=== PATIENT | female | born 1975 | race Hispanic/Latino ===

== ENCOUNTER 2016-10-24 17:04 | Emergency (ER) | payer SELFPAY ==
[2016-10-24] MEDS ORDERED: PROVENTIL IH ONE ×2 (17:19→17:24)
[2016-10-24] MEDS ORDERED: MAGNESIUM SULFATE 2GM/50ML 2 GM/50 ML BAG IV ONE (17:22)
[2016-10-24] MEDS ORDERED: ADRENALIN ONE (17:24)
[2016-10-24] MEDS ORDERED: NACL 0.9% 1000 ML 1,000 ML ONE (17:26)
[2016-10-24] MEDS ORDERED: ATROVENT IH ONE (17:29)
--- NOTE | 2016-10-24 18:24 | XRay Report ---
FINAL REPORT EXAM: XR CHEST 1V AP HISTORY: Shortness of breath TECHNIQUE: AP portable view of the chest PRIORS: None. FINDINGS: Lines, tubes, and devices: N/A Lungs and pleura: Trachea is normal in position. Lungs are clear of infiltrate, pleural effusion, vascular congestion, or pneumothorax. Cardiomediastinal silhouette: Cardiac and mediastinal silhouettes are unremarkable. Other: Bony structures are intact. IMPRESSION: No acute cardiopulmonary process seen.
[2016-10-24 18:36] LABS: Hematocrit 39.2 % (30.3-42.9); Hemoglobin 12.8 gm/dl (10.1-14.3); Mean Corpuscular HGB Conc 33 % (30-34); Mean Corpuscular Hemoglobin 28 pg (28-32); Mean Corpuscular Volume 87 fl (79-97); Platelet Count 604 K/mm3 (140-440); Red Blood Count 4.51 M/mm3 (3.65-5.03); Red Cell Distribution Width 14.2 % (13.2-15.2)
[2016-10-24 18:47] LABS: White Blood Count 23.5 K/mm3 (4.5-11.0)
[2016-10-24 18:48] LABS: Anion Gap 23 mmol/L; Blood Urea Nitrogen 14 mg/dL (7-17); Calcium 8.7 mg/dL (8.4-10.2); Carbon Dioxide 24 mmol/L (22-30); Chloride 97.2 mmol/L (98-107); Glucose 190 mg/dL (65-100); Sodium 139 mmol/L (137-145)
[2016-10-24 19:21] LABS: Basophils % (Manual) 0 % (0.0-1.8); Blastocytes % (Manual) 0 %; Platelet Estimate Appears Increased
[2016-10-24 19:22] LABS: Poikilocytosis Few
[2016-10-24 19:23] LABS: Diff Status Complete
[2016-10-24] MEDS ORDERED: MAGNESIUM SULFATE IV ONE (19:35)
[2016-10-24] MEDS ORDERED: ADRENALINE P/F SUB-Q ONE (19:36)
[2016-10-24] MEDS ORDERED: NACL 0.9% 1000 ML 1,000 ML IV ONE (19:36)
--- NOTE | 2016-10-24 21:12 | Emergency Department Report ---
HPI - General Chief Complaint: Adult Asthma Time Seen by Provider: 10/24/16 17:46 - HPI HPI: Chief complaint:" I can't breathe" This is a 41-year-old white female with history of asthma persistent moderate. Was brought to ED by mother, for severe shortness of breath. Patient was diaphoretic, and wheezing. Mother stated that patient has run out of her inhalers. Patient is in distress and has not been able to cooperate with this examination and history. ED Past Medical Hx - Past Medical History Hx Asthma: Yes Additional medical history: fibromyalgia - Surgical History Past Surgical History?: No - Family History Family history: hypertension - Social History Smoking Status: Never Smoker Substance Use Type: None - Medications Home Medications: Home Medications Medication Instructions Recorded Confirmed Last Taken Type ALBUTEROL Inhaler [ProAir HFA 2 puff IH QID PRN #1 inhalation 10/24/16 Unknown Rx Inhaler] methylPREDNISolone [Medrol] 4 mg PO DAILY #1 tab.ds.pk 10/24/16 Unknown Rx ED Review of Systems ROS: Stated complaint: ASTHMA ATTACK Other details as noted in HPI Comment: Unobtainable due to pts medical conditions Physical Exam - Physical Exam Vital Signs: Vital Signs 10/24/16 10/24/16 10/24/16 17:12 17:19 17:52 Temperature 97.1 F L Pulse Rate 120 H 97 H Pulse Rate [ Anterior Bilateral Throughout] Pulse Rate [ 117 H Posterior Bilateral Throughout] Respiratory 32 H 18 Rate Respiratory Rate [Anterior Bilateral Throughout] Respiratory 60 H Rate [Posterior Bilateral Throughout] Blood Pressure 168/124 Blood Pressure 168/124 [Left] O2 Sat by Pulse 96 97 Oximetry 10/24/16 10/24/16 10/24/16 17:54 18:31 18:56 Temperature 98 F Pulse Rate 98 H Pulse Rate [ 121 H Anterior Bilateral Throughout] Pulse Rate [ Posterior Bilateral Throughout] Respiratory 24 18 Rate Respiratory 20 Rate [Anterior Bilateral Throughout] Respiratory Rate [Posterior Bilateral Throughout] Blood Pressure Blood Pressure 118/72 [Left] O2 Sat by Pulse 100 Oximetry 10/24/16 10/24/16 10/24/16 18:57 19:47 19:48 Temperature 97 F L Pulse Rate 111 H Pulse Rate [ Anterior Bilateral Throughout] Pulse Rate [ Posterior Bilateral Throughout] Respiratory 22 20 20 Rate Respiratory Rate [Anterior Bilateral Throughout] Respiratory Rate [Posterior Bilateral Throughout] Blood Pressure Blood Pressure 112/69 [Left] O2 Sat by Pulse 98 Oximetry Physical Exam: Gen. Severe distress Head atraumatic normocephalic Eyes PERR LA EOMI Chest regular rate and rhythm normal S1-S2 lungs wheezing in all lobes Abdomen soft nondistended Back no point tenderness paravertebral tenderness Neuro no focal deficit. Psych normal mood. ED Course Vital Signs 10/24/16 10/24/16 10/24/16 17:12 17:19 17:52 Temperature 97.1 F L Pulse Rate 120 H 97 H Pulse Rate [ Anterior Bilateral Throughout] Pulse Rate [ 117 H Posterior Bilateral Throughout] Respiratory 32 H 18 Rate Respiratory Rate [Anterior Bilateral Throughout] Respiratory 60 H Rate [Posterior Bilateral Throughout] Blood Pressure 168/124 Blood Pressure 168/124 [Left] O2 Sat by Pulse 96 97 Oximetry 10/24/16 10/24/16 10/24/16 17:54 18:31 18:56 Temperature 98 F Pulse Rate 98 H Pulse Rate [ 121 H Anterior Bilateral Throughout] Pulse Rate [ Posterior Bilateral Throughout] Respiratory 24 18 Rate Respiratory 20 Rate [Anterior Bilateral Throughout] Respiratory Rate [Posterior Bilateral Throughout] Blood Pressure Blood Pressure 118/72 [Left] O2 Sat by Pulse 100 Oximetry 10/24/16 10/24/16 10/24/16 18:57 19:47 19:48 Temperature 97 F L Pulse Rate 111 H Pulse Rate [ Anterior Bilateral Throughout] Pulse Rate [ Posterior Bilateral Throughout] Respiratory 22 20 20 Rate Respiratory Rate [Anterior Bilateral Throughout] Respiratory Rate [Posterior Bilateral Throughout] Blood Pressure Blood Pressure 112/69 [Left] O2 Sat by Pulse 98 Oximetry - Reevaluation(s) Reevaluation #1: 10/24/16 21:09 Admission was offered, but patient states she feels better and wants to go home. Refuses admission. ED Medical Decision Making - Lab Data Result diagrams: 10/24/16 18:05 10/24/16 18:05 Critical care attestation.: If time is entered above; I have spent that time in minutes in the direct care of this critically ill patient, excluding procedure time. ED Disposition Clinical Impression: Asthma exacerbation Disposition: DC-01 TO HOME OR SELFCARE Is pt being admited?: No Does the pt Need Aspirin: No Condition: Stable Prescriptions: ALBUTEROL Inhaler [ProAir HFA Inhaler] 2 puff IH QID PRN #1 inhalation PRN Reason: Shortness Of Breath methylPREDNISolone [Medrol] 4 mg PO DAILY #1 tab.ds.pk Referrals: PRIMARY CARE, [Primary Care Provider] - 3-5 Days
[2016-10-24 21:23] VITALS: BP 122/68
== END 2016-10-24 21:26 | disposition home or self-care (01) ==
LOC: ED 17:04
DX: J45.901 Unspecified asthma with (acute) exacerbation (principal); M79.7 Fibromyalgia
CPT/HCPCS: 36415; 71010; 80048; 82962; 84484; 85007; 85025; 93005; 93010; 94644; 96361; 96372; 96374; 96375; 99284; J0171; J2930; J3475; J7030

== ENCOUNTER 2018-07-19 08:34 | Emergency (ER) | payer BC ==
[2018-07-19 09:36] LABS: Basophils % (Auto) 0.3 % (0.0-1.8); Eosinophils % (Auto) 0.5 % (0.0-4.3); Hematocrit 29.6 % (30.3-42.9); Hemoglobin 10.1 gm/dl (10.1-14.3); Lymphocytes # (Auto) 1.7 K/mm3 (1.2-5.4); Lymphocytes % (Auto) 49.2 % (13.4-35.0); Mean Corpuscular HGB Conc 34 % (30-34); Mean Corpuscular Volume 122 fl (79-97); Monocytes # (Auto) 0.3 K/mm3 (0.0-0.8); Platelet Count 225 K/mm3 (140-440); Red Blood Count 2.43 M/mm3 (3.65-5.03); Red Cell Distribution Width 13.5 % (13.2-15.2)
--- NOTE | 2018-07-19 09:49 | Emergency Department Report ---
ED General Adult HPI - General Chief complaint: Weakness Stated complaint: FALL/VOMITTING/GRAVES DISEASE Time Seen by Provider: 07/19/18 09:23 Source: patient Mode of arrival: Ambulatory Limitations: No Limitations - History of Present Illness Initial comments: Patient presents to emergency department with a chief complaint of generalized weakness especially worse in the lower extremity to started 2 days ago. Patient also complains of some nausea and vomiting that started this morning. Initially the patient stated she fell but then the foreskin that she did not fall. Patient has a history of Graves' disease and takes levothyroxine. Patient den ies chest pain, shortness breath, abdominal pain, facial droop, aphasia, focal weakness -: Gradual Radiation: non-radiation Severity scale (0 -10): 0 Improves with: none Worsens with: none Associated Symptoms: denies other symptoms Treatments Prior to Arrival: none - Related Data Home Medications Medication Instructions Recorded Confirmed Last Taken Albuterol Sulfate 1.25 mg IH Q6H PRN 02/22/17 02/22/17 02/21/17 Aspirin [Aspirin BABY CHEW TAB] 81 mg PO QDAY 02/22/17 02/22/17 02/21/17 Cyclobenzaprine [Flexeril 10 MG 10 mg PO DAILY 02/22/17 02/22/17 02/21/17 TAB] Duloxetine HCl [Cymbalta] 60 mg PO BID 02/22/17 02/22/17 02/21/17 Lisinopril/Hydrochlorothiazide 1 each PO DAILY 02/22/17 02/22/17 02/21/17 [Zestoretic 10-12.5 mg Tablet] Naproxen Sodium [Aleve] 220 mg PO BID 02/22/17 02/22/17 02/21/17 methIMAzole [Tapazole] 2.5 mg PO QDAY 02/22/17 02/22/17 02/21/17 Previous Rx's Medication Instructions Recorded Last Taken Type ALBUTEROL Inhaler (OR & NICU) 2 puff IH QID PRN #1 inhalation 10/24/16 02/22/17 Rx [ProAir HFA Inhaler] Budesoni/Formotero 160-4.5(Nf) 2 puff IH BID 30 Days inha 02/27/17 Unknown Rx [Symbicort 160-4.5 (Nf)] Famotidine [Pepcid] 20 mg PO BID #30 tablet 02/27/17 Unknown Rx levoFLOXacin [Levaquin] 750 mg PO QDAY #2 tablet 02/27/17 Unknown Rx Ibuprofen [Motrin] 800 mg PO Q8HR PRN #30 tablet 04/02/18 Unknown Rx traMADol [Ultram 50 MG tab] 50 mg PO Q6HR PRN #20 tablet 04/02/18 Unknown Rx Ondansetron [Zofran Odt] 4 mg PO Q4HR PRN #20 tab.rapdis 07/19/18 Unknown Rx Allergies Allergy/AdvReac Type Severity Reaction Status Date / Time No Known Allergies Allergy Unverified 10/24/16 17:14 ED Review of Systems ROS: Stated complaint: FALL/VOMITTING/GRAVES DISEASE Other details as noted in HPI Constitutional: weakness. denies: chills, fever Eyes: denies: eye pain, eye discharge, vision change ENT: denies: ear pain, throat pain Respiratory: denies: cough, shortness of breath, wheezing Cardiovascular: denies: chest pain, palpitations Endocrine: no symptoms reported Gastrointestinal: nausea, vomiting. denies: abdominal pain, diarrhea Genitourinary: denies: urgency, dysuria, discharge Musculoskeletal: denies: back pain, joint swelling, arthralgia Skin: denies: rash, lesions Neurological: denies: headache, weakness, paresthesias Psychiatric: denies: anxiety, depression Hematological/Lymphatic: denies: easy bleeding, easy bruising ED Past Medical Hx - Past Medical History Previous Medical History?: Yes Hx Congestive Heart Failure: No Hx Diabetes: No Hx Asthma: Yes Hx COPD: No Hx HIV: No Additional medical history: fibromyalgia,graves DZ, essential thrombocythemia, - Surgical History Past Surgical History?: Yes Additional Surgical History: Hysterectomy - Social History Smoking Status: Never Smoker Substance Use Type: None - Medications Home Medications: Home Medications Medication Instructions Recorded Confirmed Last Taken Type ALBUTEROL Inhaler (OR & NICU) 2 puff IH QID PRN #1 inhalation 10/24/16 02/22/17 02/22/17 Rx [ProAir HFA Inhaler] Albuterol Sulfate 1.25 mg IH Q6H PRN 02/22/17 02/22/17 02/21/17 History Aspirin [Aspirin BABY CHEW TAB] 81 mg PO QDAY 02/22/17 02/22/17 02/21/17 History Cyclobenzaprine [Flexeril 10 MG 10 mg PO DAILY 02/22/17 02/22/17 02/21/17 History TAB] Duloxetine HCl [Cymbalta] 60 mg PO BID 02/22/17 02/22/17 02/21/17 History Lisinopril/Hydrochlorothiazide 1 each PO DAILY 02/22/17 02/22/17 02/21/17 History [Zestoretic 10-12.5 mg Tablet] Naproxen Sodium [Aleve] 220 mg PO BID 02/22/17 02/22/17 02/21/17 History methIMAzole [Tapazole] 2.5 mg PO QDAY 02/22/17 02/22/17 02/21/17 History Budesoni/Formotero 160-4.5(Nf) 2 puff IH BID 30 Days inha 02/27/17 Unknown Rx [Symbicort 160-4.5 (Nf)] Famotidine [Pepcid] 20 mg PO BID #30 tablet 02/27/17 Unknown Rx levoFLOXacin [Levaquin] 750 mg PO QDAY #2 tablet 02/27/17 Unknown Rx Ibuprofen [Motrin] 800 mg PO Q8HR PRN #30 tablet 04/02/18 Unknown Rx traMADol [Ultram 50 MG tab] 50 mg PO Q6HR PRN #20 tablet 04/02/18 Unknown Rx Ondansetron [Zofran Odt] 4 mg PO Q4HR PRN #20 tab.rapdis 07/19/18 Unknown Rx ED Physical Exam - General Limitations: No Limitations General appearance: alert, in no apparent distress - Head Head exam: Present: atraumatic, normocephalic - Eye Eye exam: Present: normal appearance, PERRL, EOMI - ENT ENT exam: Present: mucous membranes moist - Neck Neck exam: Present: normal inspection - Respiratory Respiratory exam: Present: normal lung sounds bilaterally. Absent: respiratory distress, wheezes, rales - Cardiovascular Cardiovascular Exam: Present: regular rate, normal rhythm. Absent: systolic murmur, diastolic murmur, rubs, gallop - GI/Abdominal GI/Abdominal exam: Present: soft, normal bowel sounds. Absent: distended, tenderness - Extremities Exam Extremities exam: Present: normal inspection - Back Exam Back exam: Present: normal inspection - Neurological Exam Neurological exam: Present: alert, oriented X3, CN II-XII intact, normal gait, other (patient has good sensation to pinprick throughout dermatomes of lower extremities; with good muscle strength). Absent: motor sensory deficit - Psychiatric Psychiatric exam: Present: normal affect, normal mood - Skin Skin exam: Present: warm, dry, intact, normal color. Absent: rash ED Course Vital Signs 07/19/18 07/19/18 07/19/18 08:38 08:43 08:45 Temperature 98.1 F Pulse Rate 89 88 91 H Respiratory 13 20 20 Rate Blood Pressure 124/72 124/72 O2 Sat by Pulse 99 99 Oximetry 07/19/18 07/19/18 09:00 09:08 Temperature 98.1 F Pulse Rate 88 Respiratory 17 18 Rate Blood Pressure 121/77 O2 Sat by Pulse 99 Oximetry ED Medical Decision Making - Lab Data Result diagrams: 07/19/18 09:27 07/19/18 09:27 Lab Results 07/19/18 07/19/18 07/19/18 Range/Units 09:27 09:27 09:27 WBC 3.5 L (4.5-11.0) K/mm3 RBC 2.43 L (3.65-5.03) M/mm3 Hgb 10.1 (10.1-14.3) gm/dl Hct 29.6 L (30.3-42.9) % MCV 122 H (79-97) fl MCH 41 H (28-32) pg MCHC 34 (30-34) % RDW 13.5 (13.2-15.2) % Plt Count 225 (140-440) K/mm3 Lymph % (Auto) 49.2 H (13.4-35.0) % Bladen % (Auto) 9.0 H (0.0-7.3) % Eos % (Auto) 0.5 (0.0-4.3) % Baso % (Auto) 0.3 (0.0-1.8) % Lymph # 1.7 (1.2-5.4) K/mm3 Bladen # 0.3 (0.0-0.8) K/mm3 Eos # 0.0 (0.0-0.4) K/mm3 Baso # 0.0 (0.0-0.1) K/mm3 Seg Neutrophils % 41.0 (40.0-70.0) % Seg Neutrophils # 1.5 L (1.8-7.7) K/mm3 Sodium 138 (137-145) mmol/L Potassium 3.5 L (3.6-5.0) mmol/L Chloride 100.7 (98-107) mmol/L Carbon Dioxide 27 (22-30) mmol/L Anion Gap 14 mmol/L BUN 15 (7-17) mg/dL Creatinine 0.7 (0.7-1.2) mg/dL Estimated GFR > 60 ml/min BUN/Creatinine Ratio 21 % Glucose 95 (65-100) mg/dL Calcium 8.5 (8.4-10.2) mg/dL Magnesium 1.80 (1.7-2.3) mg/dL Total Bilirubin 0.20 (0.1-1.2) mg/dL AST 15 (5-40) units/L ALT 17 (7-56) units/L Alkaline Phosphatase 53 (35-129) units/L Troponin T < 0.010 (0.00-0.029) ng/mL Total Protein 7.7 (6.3-8.2) g/dL Albumin 3.8 L (3.9-5) g/dL Albumin/Globulin Ratio 1.0 % TSH (0.270-4.200) mlU/mL Thyroxine (T4) 6.2 (4.0-12.0) ug/dL 07/19/18 07/19/18 Range/Units 09:27 11:24 WBC (4.5-11.0) K/mm3 RBC (3.65-5.03) M/mm3 Hgb (10.1-14.3) gm/dl Hct (30.3-42.9) % MCV (79-97) fl MCH (28-32) pg MCHC (30-34) % RDW (13.2-15.2) % Plt Count (140-440) K/mm3 Lymph % (Auto) (13.4-35.0) % Bladen % (Auto) (0.0-7.3) % Eos % (Auto) (0.0-4.3) % Baso % (Auto) (0.0-1.8) % Lymph # (1.2-5.4) K/mm3 Bladen # (0.0-0.8) K/mm3 Eos # (0.0-0.4) K/mm3 Baso # (0.0-0.1) K/mm3 Seg Neutrophils % (40.0-70.0) % Seg Neutrophils # (1.8-7.7) K/mm3 Sodium (137-145) mmol/L Potassium (3.6-5.0) mmol/L Chloride (98-107) mmol/L Carbon Dioxide (22-30) mmol/L Anion Gap mmol/L BUN (7-17) mg/dL Creatinine (0.7-1.2) mg/dL Estimated GFR ml/min BUN/Creatinine Ratio % Glucose (65-100) mg/dL Calcium (8.4-10.2) mg/dL Magnesium (1.7-2.3) mg/dL Total Bilirubin (0.1-1.2) mg/dL AST (5-40) units/L ALT (7-56) units/L Alkaline Phosphatase (35-129) units/L Troponin T < 0.010 (0.00-0.029) ng/mL Total Protein (6.3-8.2) g/dL Albumin (3.9-5) g/dL Albumin/Globulin Ratio % TSH 3.040 (0.270-4.200) mlU/mL Thyroxine (T4) (4.0-12.0) ug/dL - EKG Data -: EKG Interpreted by Dc EKG shows normal: sinus rhythm Rate: normal - Radiology Data Radiology results: report reviewed - Medical Decision Making Patient states she feels greatly improved and is ready to go home Urinalysis was ordered but patient politely declined providing us with a sample Critical care attestation.: If time is entered above; I have spent that time in minutes in the direct care of this critically ill patient, excluding procedure time. ED Disposition Clinical Impression: Weakness, Nausea & vomiting Disposition: DC-01 TO HOME OR SELFCARE Is pt being admited?: No Does the pt Need Aspirin: No Condition: Stable Instructions: Weakness (ED) Additional Instructions: return if worse Referrals: ASHOK [facility] MD HUM[facility]ERTO [Primary Care Provider] - 3-5 Days [facility] [Outside] - 3-5 Days [facility] [Provider Group] - 3-5 Days [facility] [Provider Group] - 3-5 Days Time of Disposition: 13:01
[2018-07-19 09:53] LABS: Alanine Aminotransferase 17 units/L (7-56); Albumin 3.8 g/dL (3.9-5); BUN/Creatinine Ratio 21; Blood Urea Nitrogen 15 mg/dL (7-17); Calcium 8.5 mg/dL (8.4-10.2); Hemolysis Index 6
--- NOTE | 2018-07-19 10:17 | XRay Report ---
AP CHEST: HISTORY: Cough AP view of the chest demonstrates a normal mediastinal and cardiac contour with clear lungs and normal bony and soft tissue structures. IMPRESSION: Unremarkable AP chest.
[2018-07-19 13:34] VITALS: BP 112/72
== END 2018-07-19 13:36 | disposition home or self-care (01) ==
LOC: ED 08:34
DX: R53.1 Weakness (principal); R11.2 Nausea with vomiting, unspecified; J45.909 Unspecified asthma, uncomplicated
CPT/HCPCS: 36415; 71045; 80053; 83735; 84436; 84443; 84484; 85025; 93005; 93010

== ENCOUNTER 2020-06-14 19:19 | Emergency (ER) | payer BC, OTHER ==
[2020-06-14 19:27] VITALS: BP 149/92
--- NOTE | 2020-06-14 19:31 | Emergency Department Report ---
ED Lower Extremity HPI - General Stated Complaint: RT FOOT PAIN/SWELLING Time Seen by Provider: 06/14/20 19:23 Source: patient Mode of arrival: Ambulatory Limitations: No Limitations - History of Present Illness MD Complaint: foot injury -: Sudden, week(s) (2) Injury: Foot: Right Type of Injury: other (patient states she jumped out of tall truck and landed on her toes) Severity: moderate Severity scale (0 -10): 8 Improves With: nothing Worsens With: weight bearing, movement, palpation Context: jumping Associated Symptoms: swelling - Related Data Home Medications Medication Instructions Recorded Confirmed Last Taken Albuterol Sulfate 1.25 mg IH Q6H PRN 02/22/17 02/22/17 02/21/17 Aspirin [Aspirin BABY CHEW TAB] 81 mg PO QDAY 02/22/17 02/22/17 02/21/17 Cyclobenzaprine [Flexeril 10 MG 10 mg PO DAILY 02/22/17 02/22/17 02/21/17 TAB] Duloxetine HCl [Cymbalta] 60 mg PO BID 02/22/17 02/22/17 02/21/17 Lisinopril/Hydrochlorothiazide 1 each PO DAILY 02/22/17 02/22/17 02/21/17 [Zestoretic 10-12.5 mg Tablet] Naproxen Sodium [Aleve] 220 mg PO BID 02/22/17 02/22/17 02/21/17 methIMAzole [Tapazole] 2.5 mg PO QDAY 02/22/17 02/22/17 02/21/17 Previous Rx's Medication Instructions Recorded Last Taken Type Albuterol Mdi (or & Nicu Only) 2 puff IH QID PRN #1 inhalation 10/24/16 02/22/17 Rx [ProAir HFA Inhaler] Budesoni/Formotero 160-4.5(Nf) 2 puff IH BID 30 Days inha 02/27/17 Unknown Rx [Symbicort 160-4.5 (Nf)] Famotidine [Pepcid] 20 mg PO BID #30 tablet 02/27/17 Unknown Rx levoFLOXacin [Levaquin] 750 mg PO QDAY #2 tablet 02/27/17 Unknown Rx traMADoL [Ultram 50 MG tab] 50 mg PO Q6HR PRN #20 tablet 04/02/18 Unknown Rx Ondansetron [Zofran Odt] 4 mg PO Q4HR PRN #20 tab.rapdis 07/19/18 Unknown Rx Ibuprofen [Motrin 800 MG tab] 800 mg PO Q8HR PRN #30 tablet 06/14/20 Unknown Rx Allergies Allergy/AdvReac Type Severity Reaction Status Date / Time No Known Allergies Allergy Unverified 10/24/16 17:14 ED Review of Systems ROS: Stated complaint: RT FOOT PAIN/SWELLING Other details as noted in HPI Comment: All other systems reviewed and negative Musculoskeletal: joint swelling, arthralgia ED Past Medical Hx - Past Medical History Hx Congestive Heart Failure: No Hx Diabetes: No Hx Asthma: Yes Hx COPD: No Hx HIV: No Additional medical history: fibromyalgia,graves DZ, essential thrombocythemia, - Surgical History Additional Surgical History: Hysterectomy - Social History Smoking Status: Never Smoker Substance Use Type: None - Medications Home Medications: Home Medications Medication Instructions Recorded Confirmed Last Taken Type Albuterol Mdi (or & Nicu Only) 2 puff IH QID PRN #1 inhalation 10/24/16 02/22/17 02/22/17 Rx [ProAir HFA Inhaler] Albuterol Sulfate 1.25 mg IH Q6H PRN 02/22/17 02/22/17 02/21/17 History Aspirin [Aspirin BABY CHEW TAB] 81 mg PO QDAY 02/22/17 02/22/17 02/21/17 History Cyclobenzaprine [Flexeril 10 MG 10 mg PO DAILY 02/22/17 02/22/17 02/21/17 History TAB] Duloxetine HCl [Cymbalta] 60 mg PO BID 02/22/17 02/22/17 02/21/17 History Lisinopril/Hydrochlorothiazide 1 each PO DAILY 02/22/17 02/22/17 02/21/17 History [Zestoretic 10-12.5 mg Tablet] Naproxen Sodium [Aleve] 220 mg PO BID 02/22/17 02/22/17 02/21/17 History methIMAzole [Tapazole] 2.5 mg PO QDAY 02/22/17 02/22/17 02/21/17 History Budesoni/Formotero 160-4.5(Nf) 2 puff IH BID 30 Days inha 02/27/17 Unknown Rx [Symbicort 160-4.5 (Nf)] Famotidine [Pepcid] 20 mg PO BID #30 tablet 02/27/17 Unknown Rx levoFLOXacin [Levaquin] 750 mg PO QDAY #2 tablet 02/27/17 Unknown Rx traMADoL [Ultram 50 MG tab] 50 mg PO Q6HR PRN #20 tablet 04/02/18 Unknown Rx Ondansetron [Zofran Odt] 4 mg PO Q4HR PRN #20 tab.rapdis 07/19/18 Unknown Rx Ibuprofen [Motrin 800 MG tab] 800 mg PO Q8HR PRN #30 tablet 06/14/20 Unknown Rx ED Physical Exam - General General appearance: alert, in no apparent distress - Respiratory Respiratory exam: Absent: respiratory distress - Cardiovascular Cardiovascular Exam: Present: regular rate - Expanded Lower Extremity Exam Right Foot/Toe exam: Present: tenderness (mainly dorsal over the 2nd-4th metatarsal bones distally and MTP joints distally). Absent: swelling, abrasion, laceration, ecchymosis, deformity, crepidus, dislocation, erythema, puncture wound, foreign body, tenderness at base of 5th metatarsal Neuro vascular tendon exam: Present: no vascular compromise Gait: Positive: observed and limited by pain - Neurological Exam Neurological exam: Present: alert, oriented X3, CN II-XII intact - Psychiatric Psychiatric exam: Present: normal affect, normal mood - Skin Skin exam: Present: intact ED Course Vital Signs 06/14/20 19:25 Temperature 98.9 F Pulse Rate 99 H Respiratory 18 Rate Blood Pressure 149/92 O2 Sat by Pulse 96 Oximetry ED Lower Extremity MDM - Radiology Data Radiology results: report reviewed Patient: KELVIN ESCOBAR MR#: [id number] : 1975 Acct:[id number] Age/Sex: 45 / F ADM Date: 06/14/20 Loc: ED Attending Dr: Ordering Physician: VINCENZO LOVE Date of Service: 06/14/20 Procedure(s): XR foot 3+V RT Accession Number(s): [id number] cc: VINCENZO LOVE Fluoro Time In Minutes: RIGHT FOOT 3 VIEW(S) INDICATION / CLINICAL INFORMATION: foot injury 2 weeks ago COMPARISON: None available. FINDINGS: BONES / JOINT(S): No acute fracture or subluxation. Lisfranc interval is maintained. Suspected hallux valgus with minimal first MTP osteoarthritis. SOFT TISSUES: No significant abnormality. ADDITIONAL FINDINGS: None. IMPRESSION: No acute osseous findings of the right foot. Signer Name: Casa Batres MD Signed: 06/14/2020 8:07 PM Workstation Name: [id number] Transcribed By: GAMAL Dictated By: CASA BATRES MD Electronically Authenticated By: CASA BATRES MD Signed Date/Time: 06/14/202006 Critical care attestation.: If time is entered above; I have spent that time in minutes in the direct care of this critically ill patient, excluding procedure time. ED Disposition Clinical Impression: Sprain of foot, right Disposition: DC-01 TO HOME OR SELFCARE Is pt being admited?: No Does the pt Need Aspirin: No Condition: Stable Instructions: Foot Sprain, Elastic Bandage and RICE Therapy Additional Instructions: Take the motrin as prescribed. I recommend following up with [facility] or [facility] Director next week for further evaluation. Return to ED if worse. Prescriptions: Ibuprofen [Motrin 800 MG tab] 800 mg PO Q8HR PRN #30 tablet PRN Reason: Pain, Moderate (4-6) Referrals: DAISHA WALKER MD [Staff Physician] - 3-5 Days Time of Disposition: 20:29
--- NOTE | 2020-06-14 20:11 | XRay Report ---
RIGHT FOOT 3 VIEW(S) INDICATION / CLINICAL INFORMATION: foot injury 2 weeks ago COMPARISON: None available. FINDINGS: BONES / JOINT(S): No acute fracture or subluxation. Lisfranc interval is maintained. Suspected hallux valgus with minimal first MTP osteoarthritis. SOFT TISSUES: No significant abnormality. ADDITIONAL FINDINGS: None. IMPRESSION: No acute osseous findings of the right foot. Signer Name: Cornell Batres MD Signed: 06/14/2020 8:07 PM Workstation Name: [id number]
== END 2020-06-14 20:55 | disposition home or self-care (01) ==
LOC: ED 19:19
DX: S93.601A Unspecified sprain of right foot, initial encounter (principal); J45.909 Unspecified asthma, uncomplicated; Z90.710 Acquired absence of both cervix and uterus; Z79.1 Long term (current) use of non-steroidal anti-inflammatories (NSAID); Z79.899 Other long term (current) drug therapy; W17.89XA Other fall from one level to another, initial encounter; Y93.89 Activity, other specified; Y92.89 Other specified places as the place of occurrence of the external cause; Y99.8 Other external cause status

== ENCOUNTER 2020-09-21 04:56 | Emergency (ER) | payer OTHER ==
[2020-09-21 06:48] LABS: Basophils # (Auto) 0.1 K/mm3 (0.0-0.1); Basophils % (Auto) 0.9 % (0.0-1.8); Eosinophils # (Auto) 0.3 K/mm3 (0.0-0.4); Eosinophils % (Auto) 2.2 % (0.0-4.3); Hemoglobin 13.5 gm/dl (10.1-14.3); Lymphocytes # (Auto) 3.2 K/mm3 (1.2-5.4); Lymphocytes % (Auto) 27.5 % (13.4-35.0); Mean Corpuscular HGB Conc 34 % (30-34); Mean Corpuscular Volume 89 fl (79-97); Monocytes # (Auto) 0.8 K/mm3 (0.0-0.8); Monocytes % (Auto) 6.5 % (0.0-7.3); Platelet Count 492 K/mm3 (140-440)
[2020-09-21 07:08] LABS: Blood Urea Nitrogen 7 mg/dL (7-17); Hemolysis Index 2
[2020-09-21 07:09] LABS: BUN/Creatinine Ratio 10
--- NOTE | 2020-09-21 07:12 | XRay Report ---
CHEST 2 VIEWS INDICATION / CLINICAL INFORMATION: Upper Respiratory Infection. COMPARISON: None available. FINDINGS: SUPPORT DEVICES: None. HEART / MEDIASTINUM: No significant abnormality. LUNGS / PLEURA: No significant pulmonary or pleural abnormality. No pneumothorax. ADDITIONAL FINDINGS: No significant additional findings. IMPRESSION: 1. No acute findings. Signer Name: Surjit Mason MD Signed: 09/21/2020 7:08 AM Workstation Name: [id number]
[2020-09-21 08:24] VITALS: BP 156/91
[2020-09-21] MEDS ORDERED: predniSONE 20 MG TAB PO ONE (08:28)
[2020-09-21] MEDS ORDERED: ALBUTEROL 2.5 MG/3 ML NEBU IH ONE (08:28)
[2020-09-21] MEDS ORDERED: IPRATROPIUM 0.02% NEBU 2.5 ML IH ONE (08:28)
[2020-09-21] MEDS ORDERED: BENZONATATE 100 MG CAP PO ONE (08:28)
--- NOTE | 2020-09-21 08:31 | Emergency Department Report ---
ED General Adult HPI - General Chief complaint: Upper Respiratory Infection Stated complaint: SOB Time Seen by Provider: 09/21/20 08:23 Source: patient Mode of arrival: Ambulatory Limitations: No Limitations - History of Present Illness Initial comments: 45-year-old female patient with history of asthma and hypothyroidism presents to the emergency department with complaints of intermittently productive cough and shortness of breath for approximately 1 week. Patient has been using her nebulizer machine at home with limited relief. No known sick contacts. No current steroid or antibiotic use. No recent travel. She has also been taking NyQuil with limited relief. Denies fever, chills, hemoptysis, vomiting, diarrhea, chest pain, abdominal pain. Denies all other complaints at this time. - Related Data Home Medications Medication Instructions Recorded Confirmed Last Taken Albuterol Sulfate 1.25 mg IH Q6H PRN 02/22/17 02/22/17 02/21/17 Aspirin [Aspirin BABY CHEW TAB] 81 mg PO QDAY 02/22/17 02/22/17 02/21/17 Cyclobenzaprine [Flexeril 10 MG 10 mg PO DAILY 02/22/17 02/22/17 02/21/17 TAB] Duloxetine HCl [Cymbalta] 60 mg PO BID 02/22/17 02/22/17 02/21/17 Lisinopril/Hydrochlorothiazide 1 each PO DAILY 02/22/17 02/22/17 02/21/17 [Zestoretic 10-12.5 mg Tablet] Naproxen Sodium [Aleve] 220 mg PO BID 02/22/17 02/22/17 02/21/17 methIMAzole [Tapazole] 2.5 mg PO QDAY 02/22/17 02/22/17 02/21/17 Previous Rx's Medication Instructions Recorded Last Taken Type Albuterol Mdi (or & Nicu Only) 2 puff IH QID PRN #1 inhalation 10/24/16 02/22/17 Rx [ProAir HFA Inhaler] Budesoni/Formotero 160-4.5(Nf) 2 puff IH BID 30 Days inha 02/27/17 Unknown Rx [Symbicort 160-4.5 (Nf)] Famotidine [Pepcid] 20 mg PO BID #30 tablet 02/27/17 Unknown Rx levoFLOXacin [Levaquin] 750 mg PO QDAY #2 tablet 02/27/17 Unknown Rx traMADoL [Ultram 50 MG tab] 50 mg PO Q6HR PRN #20 tablet 04/02/18 Unknown Rx Ondansetron [Zofran Odt] 4 mg PO Q4HR PRN #20 tab.rapdis 07/19/18 Unknown Rx Ibuprofen [Motrin 800 MG tab] 800 mg PO Q8HR PRN #30 tablet 06/14/20 Unknown Rx ALBUTEROL NEB's [Proventil 0.083% 2.5 mg IH TID PRN #10 neb 09/21/20 Unknown Rx NEBS] Albuterol Sulfate [Proair 90 mcg IH Q4H PRN #1 aer.pow.ba 09/21/20 Unknown Rx Respiclick] Benzonatate [Tessalon Perles] 200 mg PO Q8HR #30 capsule 09/21/20 Unknown Rx predniSONE [Deltasone] 20 mg PO QDAY 5 Days tab 09/21/20 Unknown Rx Allergies Allergy/AdvReac Type Severity Reaction Status Date / Time No Known Allergies Allergy Unverified 10/24/16 17:14 ED Review of Systems ROS: Stated complaint: SOB Other details as noted in HPI Other: GENERAL: Negative for fever, chills, weight change, anorexia, fatigue. ENT: Negative for ear pain, difficulty hearing, sore throat, nasal congestion, epistaxis. CARDIOVASCULAR: Negative for chest pain, palpitations, lower extremity swelling. PULMONARY: Positive for cough and shortness of breath. GASTROINTESTINAL: Negative for abdominal pain, nausea, vomiting, diarrhea, constipation. MUSCULOSKELETAL: Negative for joint pain, joint swelling, myalgias, back pain, neck pain. NEUROLOGICAL: Negative for headache, seizure, syncope, paresthesias, weakness. INTEGUMENTARY: Negative for erythema, rash, diaphoresis, laceration, ecchymosis. HEMATOLOGICAL: Negative for hemoptysis, hematemesis, hematochezia, hematuria. PSYCHIATRIC: Negative for hallucinations, suicidal ideation, homicidal ideation, anxiety, depression. ED Past Medical Hx - Past Medical History Hx Congestive Heart Failure: No Hx Diabetes: No Hx Asthma: Yes Hx COPD: No Hx HIV: No Additional medical history: fibromyalgia,graves DZ, essential thrombocythemia,Bronchitis - Surgical History Additional Surgical History: Hysterectomy - Social History Smoking Status: Never Smoker Substance Use Type: None - Medications Home Medications: Home Medications Medication Instructions Recorded Confirmed Last Taken Type Albuterol Mdi (or & Nicu Only) 2 puff IH QID PRN #1 inhalation 10/24/16 02/22/17 02/22/17 Rx [ProAir HFA Inhaler] Albuterol Sulfate 1.25 mg IH Q6H PRN 02/22/17 02/22/17 02/21/17 History Aspirin [Aspirin BABY CHEW TAB] 81 mg PO QDAY 02/22/17 02/22/17 02/21/17 History Cyclobenzaprine [Flexeril 10 MG 10 mg PO DAILY 02/22/17 02/22/17 02/21/17 History TAB] Duloxetine HCl [Cymbalta] 60 mg PO BID 02/22/17 02/22/17 02/21/17 History Lisinopril/Hydrochlorothiazide 1 each PO DAILY 02/22/17 02/22/17 02/21/17 History [Zestoretic 10-12.5 mg Tablet] Naproxen Sodium [Aleve] 220 mg PO BID 02/22/17 02/22/17 02/21/17 History methIMAzole [Tapazole] 2.5 mg PO QDAY 02/22/17 02/22/17 02/21/17 History Budesoni/Formotero 160-4.5(Nf) 2 puff IH BID 30 Days inha 02/27/17 Unknown Rx [Symbicort 160-4.5 (Nf)] Famotidine [Pepcid] 20 mg PO BID #30 tablet 02/27/17 Unknown Rx levoFLOXacin [Levaquin] 750 mg PO QDAY #2 tablet 02/27/17 Unknown Rx traMADoL [Ultram 50 MG tab] 50 mg PO Q6HR PRN #20 tablet 04/02/18 Unknown Rx Ondansetron [Zofran Odt] 4 mg PO Q4HR PRN #20 tab.rapdis 07/19/18 Unknown Rx Ibuprofen [Motrin 800 MG tab] 800 mg PO Q8HR PRN #30 tablet 06/14/20 Unknown Rx ALBUTEROL NEB's [Proventil 0.083% 2.5 mg IH TID PRN #10 neb 09/21/20 Unknown Rx NEBS] Albuterol Sulfate [Proair 90 mcg IH Q4H PRN #1 aer.pow.ba 09/21/20 Unknown Rx Respiclick] Benzonatate [Tessalon Perles] 200 mg PO Q8HR #30 capsule 09/21/20 Unknown Rx predniSONE [Deltasone] 20 mg PO QDAY 5 Days tab 09/21/20 Unknown Rx ED Physical Exam - General Limitations: No Limitations - Other Other exam information: General: Awake and alert. No acute distress. Head: Atraumatic, normocephalic. Eyes: EOMI. Pupils are equal and round. Normal sclera and conjunctiva. ENT: Oral mucosa is moist. Normal pharyngeal exam. Neck: Supple. No lymphadenopathy. Pulmonary: Actively coughing on exam. Diffuse inspiratory and expiratory wheezing with diminished air movement throughout. Cardiac: Regular rate and rhythm. Pulses are palpable and equal bilaterally. No lower extremity cyanosis or edema. Skin: Warm and dry. No rashes. Abdomen: Soft, non-tender, non-protuberant. No guarding, rigidity, or rebound. Bowel sounds are normal. No organomegaly or masses noted. Back: Normal alignment. No CVA tenderness. Extremities: Symmetrical. Full range of motion intact. Neurological: Alert and oriented, appropriately interactive, no focal deficits. Psych: Cooperative. Appropriate mood and affect. Speech is evenly metered. Thoughts are logically construed. ED Course Vital Signs 09/21/20 06:05 Temperature 98.1 F Pulse Rate 65 Respiratory 12 Rate Blood Pressure 156/91 O2 Sat by Pulse 97 Oximetry ED Medical Decision Making - Lab Data Result diagrams: 09/21/20 06:24 09/21/20 06:24 - Medical Decision Making Differential diagnosis including but not limited to: pneumonia, pertussis, influenza, asthma exacerbation, pleural effusion, pneumothorax, viral upper respiratory infection On reevaluation, patient is stable and symptoms have improved. No hypoxia, no respiratory distress. Repeat pulmonary exam demonstrates significant improved air movement and wheezing has nearly resolved. Patient states she is feeling better. Labs ordered by lead assembler prior to medical screening examination are unremarkable. Chest x-ray without acute process. No clinical indication for further diagnostic work-up on an emergent basis at this time. Patient will be discharged home with beta agonist inhaler, short course of steroids, and antitussives. Referred to primary care provider for close outpatient follow-up. Patient expressed understanding and is agreeable to plan of care. Strict return precautions provided. Repeat exam is unremarkable and benign. History, exam, diagnostic testing, and current condition do not suggest worrisome pathology to warrant further testing, continued ED treatment, admission, or surgical evaluation at this point. Given the low probability of a significant medical illness, it would be more likely to result in harm than benefit to perform further testing at this stage. Discussed findings, presumptive diagnosis, need for follow-up and specific signs/symptoms that should prompt immediate return to the emergency department. Instructions were explained in detail to the patient in addition to giving written discharge information. Patient expressed understanding and was given the opportunity to ask questions, all of which were satisfactorily answered prior to discharge home. Critical care attestation.: If time is entered above; I have spent that time in minutes in the direct care of this critically ill patient, excluding procedure time. ED Disposition Clinical Impression: Asthma exacerbation Qualifiers: Asthma severity: unspecified severity Asthma persistence: unspecified Qualified Code(s): J45.901 - Unspecified asthma with (acute) exacerbation Disposition: TO HOME OR SELFCARE Is pt being admited?: No Does the pt Need Aspirin: No Condition: Stable Instructions: Asthma, Adult Additional Instructions: Take Tessalon as directed for cough. Honey is an excellent natural cough suppressant. Use Albuterol inhaler or nebulizer as directed. Take Prednisone with food as directed. Avoid environmental triggers which may worsen your asthma. Follow-up with primary care provider this week. Call tomorrow to schedule appointment. See referral information below. Return to the emergency department immediately for new or worsening symptoms. Prescriptions: predniSONE [Deltasone] 20 mg PO QDAY 5 Days tab Albuterol Sulfate [Proair Respiclick] 90 mcg IH Q4H PRN #1 aer.pow.ba PRN Reason: asthma ALBUTEROL NEB's [Proventil 0.083% NEBS] 2.5 mg IH TID PRN #10 neb PRN Reason: Wheezing Benzonatate [Tessalon Perles] 200 mg PO Q8HR #30 capsule Referrals: PRIMARY CAREMD [Primary Care Provider] - 3-5 Days ROSALIE ZIEGLER MD [Staff Physician] - 3-5 Days [facility] [Outside] - 3-5 Days [facility] [Outside] - 3-5 Days [facility] [Outside] - 3-5 Days [facility] [Provider Group] - 3-5 Days Forms: Work/School Release Form(ED) Time of Disposition: 10:23
== END 2020-09-21 10:36 | disposition home or self-care (01) ==
LOC: ED 04:56
DX: J45.901 Unspecified asthma with (acute) exacerbation (principal); Z79.899 Other long term (current) drug therapy; Z90.710 Acquired absence of both cervix and uterus
CPT/HCPCS: 36415; 71046; 80048; 85025; 94640; 99284; J7512

== ENCOUNTER 2021-12-05 00:45 | Emergency (ER) | payer SELFPAY ==
[2021-12-05] MEDS ORDERED: DICYCLOMINE 20 MG TAB PO ONE (05:03)
[2021-12-05] MEDS ORDERED: ONDANSETRON 4 MG ODT TAB PO ONE (05:04)
[2021-12-05] MEDS ORDERED: KETOROLAC 30 MG/1 ML INJ IV ONE (05:10)
[2021-12-05 05:49] LABS: Basophils # (Auto) 0.1 K/mm3 (0.0-0.1); Basophils % (Auto) 0.5 % (0.0-1.8); Eosinophils # (Auto) 0.1 K/mm3 (0.0-0.4); Eosinophils % (Auto) 0.9 % (0.0-4.3); Hematocrit 40.1 % (30.3-42.9); Hemoglobin 13.6 gm/dl (10.1-14.3); Lymphocytes # (Auto) 3.3 K/mm3 (1.2-5.4); Mean Corpuscular HGB Conc 34 % (30-34); Mean Corpuscular Volume 87 fl (79-97); Monocytes # (Auto) 0.7 K/mm3 (0.0-0.8); Monocytes % (Auto) 5.1 % (0.0-7.3); Platelet Count 543 K/mm3 (140-440); Red Blood Count 4.59 M/mm3 (3.65-5.03); Red Cell Distribution Width 14.1 % (13.2-15.2)
[2021-12-05 05:52] LABS: Color,Urine Yellow (Yellow)
[2021-12-05] MEDS ORDERED: SUCRALFATE 1 GM/10 ML ORAL LIQD PO ONE (05:53)
[2021-12-05 05:55] LABS: Mucus,Urine FEW /HPF; WBC,Urine < 1.0 /HPF (0.0-6.0)
[2021-12-05 06:00] LABS: Alanine Aminotransferase 17 units/L (7-56); Albumin 4.6 g/dL (3.9-5); BUN/Creatinine Ratio 20; Blood Urea Nitrogen 14 mg/dL (7-17); Calcium 9.3 mg/dL (8.4-10.2); Hemolysis Index 22
--- NOTE | 2021-12-05 06:30 | Emergency Department Report ---
ED Abdominal Pain HPI - General Chief Complaint: Abdominal Pain Stated Complaint: ABD PAIN Source: patient Mode of arrival: Ambulatory Limitations: No Limitations - History of Present Illness Initial Comments: Patient is a 46-year-old female with history of asthma who presents to the ED with complaint of acute onset epigastric pain with nausea for the last 3 days. Patient also complains of persistent diarrhea for the last 1 week. Patient denies hemoptysis, hematemesis, chest pain or shortness of breath, cough, sore throat, dysuria, urine frequency and urgency, fever, chills, hematochezia or back pain. MD Complaint: abdominal pain (epigastric pain), other (diarrhea) -: Gradual, days(s) (3) Location: epigastric Radiation: none Migration to: no migration Severity: moderate Severity scale (0 -10): 6 Quality: cramping, aching Consistency: constant Improves With: nothing Worsens With: eating Associated Symptoms: denies other symptoms, nausea, diarrhea. denies: vomiting, fever, chills, constipation, dysuria, hematemesis, hematochezia, melena, hematuria, syncope - Related Data Home Medications Medication Instructions Recorded Confirmed Last Taken Albuterol Sulfate 1.25 mg IH Q6H PRN 02/22/17 02/22/17 02/21/17 Aspirin [Aspirin BABY CHEW TAB] 81 mg PO QDAY 02/22/17 02/22/17 02/21/17 Cyclobenzaprine [Flexeril 10 MG 10 mg PO DAILY 02/22/17 02/22/17 02/21/17 TAB] Duloxetine HCl [Cymbalta] 60 mg PO BID 02/22/17 02/22/17 02/21/17 Lisinopril/Hydrochlorothiazide 1 each PO DAILY 02/22/17 02/22/17 02/21/17 [Zestoretic 10-12.5 mg Tablet] Naproxen Sodium [Aleve] 220 mg PO BID 02/22/17 02/22/17 02/21/17 methIMAzole [Tapazole] 2.5 mg PO QDAY 02/22/17 02/22/17 02/21/17 Previous Rx's Medication Instructions Recorded Last Taken Type Albuterol Mdi (or & Nicu Only) 2 puff IH QID PRN #1 inhalation 10/24/16 02/22/17 Rx [ProAir HFA Inhaler] Budesoni/Formotero 160-4.5(Nf) 2 puff IH BID 30 Days inha 02/27/17 Unknown Rx [Symbicort 160-4.5 (Nf)] levoFLOXacin [Levaquin] 750 mg PO QDAY #2 tablet 02/27/17 Unknown Rx traMADoL [Ultram 50 MG tab] 50 mg PO Q6HR PRN #20 tablet 04/02/18 Unknown Rx Ondansetron [Zofran Odt] 4 mg PO Q4HR PRN #20 tab.rapdis 07/19/18 Unknown Rx Ibuprofen [Motrin 800 MG tab] 800 mg PO Q8HR PRN #30 tablet 06/14/20 Unknown Rx ALBUTEROL NEB's [Proventil 0.083% 2.5 mg IH TID PRN #10 neb 09/21/20 Unknown Rx NEBS] Albuterol Sulfate [Proair 90 mcg IH Q4H PRN #1 aer.pow.ba 09/21/20 Unknown Rx Respiclick] Benzonatate [Tessalon Perles] 200 mg PO Q8HR #30 capsule 09/21/20 Unknown Rx predniSONE [Deltasone] 20 mg PO QDAY 5 Days tab 09/21/20 Unknown Rx Dicyclomine [Bentyl] 20 mg PO Q6H PRN #30 tablet 12/05/21 Unknown Rx Famotidine [Pepcid] 20 mg PO BID #60 tablet 12/05/21 Unknown Rx Omeprazole 40 mg PO DAILY #30 cap 12/05/21 Unknown Rx Ondansetron [Zofran Odt] 4 mg PO Q6HR PRN #15 tab.rapdis 12/05/21 Unknown Rx Allergies Allergy/AdvReac Type Severity Reaction Status Date / Time No Known Allergies Allergy Unverified 10/24/16 17:14 ED Review of Systems ROS: Stated complaint: ABD PAIN Other details as noted in HPI Constitutional: denies: chills, fever Eyes: denies: eye pain, eye discharge, vision change ENT: denies: ear pain, throat pain Respiratory: denies: cough, shortness of breath, wheezing Cardiovascular: denies: chest pain, palpitations Endocrine: no symptoms reported Gastrointestinal: abdominal pain (epigastric), nausea, diarrhea Genitourinary: denies: urgency, dysuria, discharge Musculoskeletal: denies: back pain, joint swelling, arthralgia Skin: denies: rash, lesions Neurological: denies: headache, weakness, paresthesias Psychiatric: denies: anxiety, depression Hematological/Lymphatic: denies: easy bleeding, easy bruising ED Past Medical Hx - Past Medical History Hx Congestive Heart Failure: No Hx Diabetes: No Hx Asthma: Yes Hx COPD: No Hx HIV: No Additional medical history: fibromyalgia,graves DZ, essential thrombocythemia,Bronchitis - Surgical History Additional Surgical History: Hysterectomy - Social History Smoking Status: Never Smoker Substance Use Type: None - Medications Home Medications: Home Medications Medication Instructions Recorded Confirmed Last Taken Type Albuterol Mdi (or & Nicu Only) 2 puff IH QID PRN #1 inhalation 10/24/16 02/22/17 02/22/17 Rx [ProAir HFA Inhaler] Albuterol Sulfate 1.25 mg IH Q6H PRN 02/22/17 02/22/17 02/21/17 History Aspirin [Aspirin BABY CHEW TAB] 81 mg PO QDAY 02/22/17 02/22/17 02/21/17 History Cyclobenzaprine [Flexeril 10 MG 10 mg PO DAILY 02/22/17 02/22/17 02/21/17 Histor y TAB] Duloxetine HCl [Cymbalta] 60 mg PO BID 02/22/17 02/22/17 02/21/17 History Lisinopril/Hydrochlorothiazide 1 each PO DAILY 02/22/17 02/22/17 02/21/17 History [Zestoretic 10-12.5 mg Tablet] Naproxen Sodium [Aleve] 220 mg PO BID 02/22/17 02/22/17 02/21/17 History methIMAzole [Tapazole] 2.5 mg PO QDAY 02/22/17 02/22/17 02/21/17 History Budesoni/Formotero 160-4.5(Nf) 2 puff IH BID 30 Days inha 02/27/17 Unknown Rx [Symbicort 160-4.5 (Nf)] levoFLOXacin [Levaquin] 750 mg PO QDAY #2 tablet 02/27/17 Unknown Rx traMADoL [Ultram 50 MG tab] 50 mg PO Q6HR PRN #20 tablet 04/02/18 Unknown Rx Ondansetron [Zofran Odt] 4 mg PO Q4HR PRN #20 tab.rapdis 07/19/18 Unknown Rx Ibuprofen [Motrin 800 MG tab] 800 mg PO Q8HR PRN #30 tablet 06/14/20 Unknown Rx ALBUTEROL NEB's [Proventil 0.083% 2.5 mg IH TID PRN #10 neb 09/21/20 Unknown Rx NEBS] Albuterol Sulfate [Proair 90 mcg IH Q4H PRN #1 aer.pow.ba 09/21/20 Unknown Rx Respiclick] Benzonatate [Tessalon Perles] 200 mg PO Q8HR #30 capsule 09/21/20 Unknown Rx predniSONE [Deltasone] 20 mg PO QDAY 5 Days tab 09/21/20 Unknown Rx Dicyclomine [Bentyl] 20 mg PO Q6H PRN #30 tablet 12/05/21 Unknown Rx Famotidine [Pepcid] 20 mg PO BID #60 tablet 12/05/21 Unknown Rx Omeprazole 40 mg PO DAILY #30 cap 12/05/21 Unknown Rx Ondansetron [Zofran Odt] 4 mg PO Q6HR PRN #15 tab.rapdis 12/05/21 Unknown Rx ED Physical Exam - General Limitations: No Limitations General appearance: alert, in no apparent distress - Head Head exam: Present: atraumatic, normocephalic, normal inspection - Eye Eye exam: Present: normal appearance, PERRL, EOMI Pupils: Present: normal accommodation - ENT ENT exam: Present: normal exam, normal orophraynx, mucous membranes moist, TM's normal bilaterally, normal external ear exam - Neck Neck exam: Present: normal inspection, full ROM. Absent: tenderness - Respiratory Respiratory exam: Present: normal lung sounds bilaterally. Absent: respiratory distress, wheezes, rales, rhonchi, chest wall tenderness, accessory muscle use, decreased breath sounds - Cardiovascular Cardiovascular Exam: Present: regular rate, normal rhythm, normal heart sounds. Absent: systolic murmur, diastolic murmur, rubs, gallop - GI/Abdominal GI/Abdominal exam: Present: soft, normal bowel sounds. Absent: tenderness, guarding, rebound, hyperactive bowel sounds, hypoactive bowel sounds, organo megaly, mass - Extremities Exam Extremities exam: Present: normal inspection, full ROM, normal capillary refill. Absent: tenderness, pedal edema, calf tenderness - Back Exam Back exam: Present: normal inspection, full ROM. Absent: tenderness, CVA tenderness (R), CVA tenderness (L), muscle spasm, paraspinal tenderness, vertebral tenderness - Neurological Exam Neurological exam: Present: alert, oriented X3, CN II-XII intact, normal gait, reflexes normal - Psychiatric Psychiatric exam: Present: normal affect, normal mood - Skin Skin exam: Present: warm, dry, intact, normal color. Absent: rash ED Course Vital Signs 12/05/21 01:29 Temperature 98.1 F Pulse Rate 77 Respiratory 18 Rate Blood Pressure 152/97 O2 Sat by Pulse 97 Oximetry ED Medical Decision Making - Lab Data Result diagrams: 12/05/21 05:14 12/05/21 05:14 - Medical Decision Making This is a 46-year-old female with history of asthma who presents to the ED with complaint of acute onset epigastric pain with nausea for the last 3 days. Patient also complains of persistent diarrhea for the last 1 week. In the ED, patient is alert and oriented x3 and is not in any distress. Lab test results were reviewed and are all nonactionable. Patient was treated for pain in the ED and also treated with antacids. On reevaluation patient felt better and was discharged home on medications. Patient symptoms are likely due to gastroenteritis. Patient was discharged home on medications and advised to follow-up with her primary care physician in 5 to 7 days for reevaluation. Patient was advised to return to the ED immediately if symptoms get worse. - Differential Diagnosis GERD; gastritis; viral gastroenteritis; UTI Critical care attestation.: If time is entered above; I have spent that time in minutes in the direct care of this critically ill patient, excluding procedure time. ED Disposition Clinical Impression: Acute gastroenteritis GERD (gastroesophageal reflux disease) Qualifiers: Esophagitis presence: esophagitis presence not specified Qualified Code(s): K21.9 - Gastro-esophageal reflux disease without esophagitis Diarrhea, unspecified Qualifiers: Diarrhea type: unspecified type Qualified Code(s): R19.7 - Diarrhea, unspecified Disposition: HOME / SELF CARE / HOMELESS Is pt being admited?: No Does the pt Need Aspirin: No Condition: Stable Instructions: Abdominal Pain (ED), Viral Gastroenteritis, Adult, [id number], Heartburn, [id number], Gastroesophageal Reflux Disease, Adult, [id number], Diarrhea, Adult, [id number] Additional Instructions: All lab test results were reviewed and are all nonactionable except for acute leukocytosis of 14,000. The rest of the lab test results are nonactionable. Therefore take medication with food, drink plenty of fluids, follow-up with your primary care physician in 5 to 7 days for reevaluation. Return to the ED immediately if symptoms get worse. Prescriptions: Dicyclomine [Bentyl] 20 mg PO Q6H PRN #30 tablet PRN Reason: abdominal pain Omeprazole 40 mg PO DAILY #30 cap Famotidine [Pepcid] 20 mg PO BID #60 tablet Ondansetron [Zofran Odt] 4 mg PO Q6HR PRN #15 tab.rapdis PRN Reason: Nausea Referrals: [facility] [Provider Group] - 3-5 Days Time of Disposition: 06:30 Print Language: BRAZILIAN
[2021-12-05 07:02] VITALS: BP 132/69
== END 2021-12-05 07:01 | disposition home or self-care (01) ==
LOC: ED 00:45
DX: K52.9 Noninfective gastroenteritis and colitis, unspecified (principal); K21.9 Gastro-esophageal reflux disease without esophagitis; J45.909 Unspecified asthma, uncomplicated; Z90.710 Acquired absence of both cervix and uterus; Z79.899 Other long term (current) drug therapy; Z72.89 Other problems related to lifestyle
CPT/HCPCS: 36415; 80053; 81001; 83690; 84703; 85025; 96374; 99283; J1885; J3490; Q0162